=== PATIENT | male | born 1990 | race Caucasian/White ===

== ENCOUNTER 2023-01-02 12:59 | Emergency (ER) | payer SELFPAY ==
[2023-01-02 13:04] VITALS: BP 176/93; PULSE 70; RESP 18; TEMP 36.6; O2SAT 99; BMI 39.9
--- NOTE | 2023-01-02 13:41 | ED.GENADUL1 ---
HPI - General Adult General Chief complaint: Eye Problems Stated complaint: EYE PAIN Time Seen by Provider: 01/02/23 13:11 Source: patient Mode of arrival: walk-in Limitations: no limitations History of Present Illness HPI narrative: [age] male presents her chief complaint of right eye irritation. He will to bed last night with his contacts in. States he wear contacts daily without removing. states Been wearing contacts for last two or three days, woke up with irritation and burning sensation to the right eye. Denies any foreign body, known injury or trauma. he states he has had similar symptoms in the past. He did remove the contact before coming to the emergency room. Conjunctivae is red and injected. Patient rubbing his eye. Complains of photophobia as well. States last tetanus immunization was six months ago. Related Data Previous Rx's Medication Instructions Recorded ketorolac 0.5 % eye drops (Acular) 1 drp ophthalmic (eye) Q8H 4 days 01/02/23 #5 mL tobramycin 0.3 %-dexamethasone 0.1 1 drp ophthalmic (eye) Q6H 5 days 01/02/23 % eye drops,suspension (TobraDex) #5 mL Allergies Allergy/AdvReac Type Severity Reaction Status Date / Time sulfamethoxazole AdvReac Mild Hives Verified 01/02/23 13:04 [From Bactrim] trimethoprim [From Bactrim] AdvReac Mild Hives Verified 01/02/23 13:04 Review of Systems ROS Narrative All Systems are negative except as noted/marked.All systems reviewed and otherwise negative Exam Narrative Exam Narrative: Nurses's note reviewed and patient is not hypoxic. General: The patient appears well and in no apparent distress. Patient is resting comfortably on cart. Skin: Warm, dry, no pallor noted. Head: Normocephalic, atraumatic Neck: Supple, trachea mid-line, no tenderness, no lymphadenopathy Eye: Normal extraocular motion, pupils were equal round and reactive to light, the patient had no pain with extraocular motion. The patient had Tetracaine applied to the (right eye), fluorescein dye was instilled following. The patient had exam with slit lamp that did show evidence of uptake at the ___7'oclock _ cornea, iritis injected as well. The patient had no involvement over the pupil. There was evidence of conjunctival injection. The patient's eyelid was everted and swept with no evidence of foreign body. The patient had no swelling of the upper/lower eyelid. No evidence of hyphema, dendritic lesion or Narrow angle. No corneal ulcerations or hypopyn. No evidence of preseptal cellulitis or orbital cellulitis. Ears, Nose, Mouth, and Throat: oral mucosa is moist Respiratory: Patient is in no distress Neurological: A&O x4, normal speech Psychiatric: Cooperative Constitutional Vital Signs - 24 hr 01/02/23 13:04 Temperature 98 F Pulse Rate [Monitor] 70 Respiratory Rate 18 Blood Pressure [Right Arm] 176/93 H Pulse Oximetry 99 Oxygen Delivery Method Room Air Course Vital Signs Vital signs: Vital Signs Temperature 98 F 01/02/23 13:04 Pulse Rate 70 01/02/23 13:04 Respiratory Rate 18 01/02/23 13:04 Blood Pressure 176/93 H 01/02/23 13:04 Pulse Oximetry 99 01/02/23 13:04 Oxygen Delivery Method Room Air 01/02/23 13:04 Temperature 98 F 01/02/23 13:04 Pulse Rate 70 01/02/23 13:04 Respiratory Rate 18 01/02/23 13:04 Blood Pressure 176/93 H 01/02/23 13:04 Pulse Oximetry 99 01/02/23 13:04 Oxygen Delivery Method Room Air 01/02/23 13:04 Medical Decision Making MDM Narrative Medical decision making narrative: Normal extraocular motion, pupils were equal round and reactive to light, the patient had no pain with extraocular motion. The patient had Tetracaine applied to the (right eye), fluorescein dye was instilled following. The patient had exam with slit lamp that did show evidence of uptake at the ___7'oclock _ cornea, iritis injected as well. The patient had no involvement over the pupil. There was evidence of conjunctival injection. The patient's eyelid was everted and swept with no evidence of foreign body. The patient had no swelling of the upper/lower eyelid. No evidence of hyphema, dendritic lesion or Narrow angle. No corneal ulcerations or hypopyn. No evidence of preseptal cellulitis or orbital cellulitis. Patient's pain was relieved with tetracaine. Foreseen stain was placed in the 7:00 area of uptake noted consistent with corneal abrasion. No foreign body noted. He does have early onset of iritis as well. He'll be discharged home with TobraDex eyedrops and Acular. He is going to follow-up with his eye doctor on Thursday or Thursday at [facility]. Reasons return to emergency room or discussed. Patient agrees with plan of care. Medical Records Medical records reviewed: Yes I reviewed the patient's medical records Discharge Plan Discharge Chief Complaint: Eye Problems Clinical Impression: Acute iritis, Corneal abrasion Patient Disposition: Home, Self-Care Time of Disposition Decision: 13:37 Condition: Good Prescriptions / Home Meds: New ketorolac [Acular] 0.5 % drops 1 drp ophthalmic (eye) Q8H 4 Days Qty: 5 0RF Rx Instructions: begin 24 hours prior to surgery tobramycin-dexamethasone [TobraDex] 0.3-0.1 % drops,suspension 1 drp ophthalmic (eye) Q6H 5 Days Qty: 5 0RF Instructions: Iritis (ED), Corneal Abrasion (ED) Stand Alone Forms: Portal Instructions Referrals: NATHEN GARCIA [Primary Care Provider] - 1 week
[2023-01-02] MEDS: FLUORESCEIN SODIUM 1 MG STRIP OP (13:44)
== END 2023-01-02 13:47 | disposition home or self-care (01) ==
PROVIDERS: Emergency Provider Emergency Medicine; PCP Family Medicine
DX: H20.00 Unspecified acute and subacute iridocyclitis (principal); S05.01XA Injury of conjunctiva and corneal abrasion without foreign body, right eye, initial encounter; X58.XXXA Exposure to other specified factors, initial encounter
CPT/HCPCS: 99283

== ENCOUNTER 2024-02-24 16:18 | Emergency (ER) | payer OTHER, SELFPAY ==
[2024-02-24 16:24] VITALS: BP 175/98; PULSE 82; TEMP 36.9; O2SAT 95; BMI 44.3
--- NOTE | 2024-02-24 16:40 | ED_ITS ---
HPI HPI - General Adult General Chief complaint: Abdominal Pain Stated complaint: Lower Abdominal Pain Time Seen by Provider: 02/24/24 16:20 Source: patient Mode of arrival: walk-in History of Present Illness HPI narrative: Patient presents ED complaining of left lower quadrant pain and flank pain. Patient states it started pretty suddenly at work tonight about 4 hours ago. He thought maybe he just had to stand up and stretch but it was not getting any better and the pain was getting more severe and sharp. He said it was making him nauseated but no vomiting at this time. No history of kidney stones. No history of diverticulitis. He does report that the pain radiates towards the testicle but no acute testicular pain. No fevers. Related Data Home Medications ?Medication ?Instructions ?Recorded ?Confirmed dextroamphetamine-amphetamine 30 02/24/24 mg tablet Allergies Allergy/AdvReac Type Severity Reaction Status Date / Time sulfamethoxazole AdvReac Mild Hives Verified 01/02/23 13:04 [From Bactrim] trimethoprim [From Bactrim] AdvReac Mild Hives Verified 01/02/23 13:04 Opioid HPI Opioid Management Most Recent Opioid Data: Last AUG Pain Assessment 02/24/24 16:45 Review of Systems ROS Status of ROS 10 or more systems reviewed and unremark able except as noted in history and below Exam Narrative Exam Narrative: Time Seen: [] Vital Signs: [Per nurse's notes.] General: [Alert] Skin: [Warm, dry, no rash.] Head: [Normocephalic, atraumatic.] Neck: [Supple, trachea midline.] Eye: [Pupils are equal, round and reactive to light, extraocular movements are intact, normal conjunctiva.] Ears, nose, mouth and throat: oral mucosa moist. Cardiovascular: [Regular rate and rhythm, no murmur.] Respiratory: [Lungs are clear to auscultation, respirations are non-labored, breath sounds are equal.] Chest wall: [No tenderness, no deformity.] Gastrointestinal: [Soft, nontender, non distended, normal bowel sounds.]Patient reports the left lower quadrant pain and flank pain Is not really reproducible on exam but it feels more deeper in MSK: 5 out of 5 muscle strength x 4 extremities no calf pain or edema Lymphatics: [No lymphadenopathy.] Psychiatric: [Cooperative, appropriate mood & affect.] Neurological: [Alert and oriented to person, place, time, and situation, no focal neurological deficit observed.] Constitutional Vital Signs, click to edit/add: Last Vital Signs Temp 98.4 F 02/24/24 16:24 Pulse 82 02/24/24 16:24 Resp 16 02/24/24 16:24 BP 175/98 H 02/24/24 16:24 Pulse Ox 95 02/24/24 16:24 O2 Del Method Room Air 02/24/24 16:24 Course Vital Signs Vital signs: Vital Signs Temperature 98.4 F 02/24/24 16:24 Pulse Rate 82 02/24/24 16:24 Respiratory Rate 16 02/24/24 16:24 Blood Pressure 175/98 H 02/24/24 16:24 Pulse Oximetry 95 02/24/24 16:24 Oxygen Delivery Method Room Air 02/24/24 16:24 Temperature 98.4 F 02/24/24 16:24 Pulse Rate 82 02/24/24 16:24 Respiratory Rate 16 02/24/24 16:24 Blood Pressure 175/98 H 02/24/24 16:24 Pulse Oximetry 95 02/24/24 16:24 Oxygen Delivery Method Room Air 02/24/24 16:24 Medical Decision Making MDM Narrative Medical decision making narrative: Final clinical impression is kidney stone Differential Diagnosis Differential Diagnosis: Kidney stone diverticulitis Lab Data Labs: Lab Results 02/24/24 02/24/24 Range/Units 16:27 16:50 WBC 11.3 H (4.0-11.0) 10^3/uL RBC 5.58 (4.70-6.10) 10^6/uL Hgb 15.9 (14.0-18.0) g/dL Hct 47.8 (42.0-54.0) % MCV 85.7 (80.0-94.0) fL MCH 28.5 (25.9-34.0) pg MCHC 33.3 (29.9-35.2) g/dL RDW 13.9 (11.0-15.0) % Plt Count 334 (150-450) 10^3/uL MPV 9.1 L (9.5-13.5) fL Neut % (Auto) 56.1 (43.0-75.0) % Lymph % (Auto) 32.7 (20.5-60.0) % [place] % (Auto) 8.3 (1.7-12.0) % Eos % (Auto) 1.9 (0.9-7.0) % Baso % (Auto) 0.5 (0.2-2.0) % Neut # (Auto) 6.3 (1.4-6.5) 10^3/uL Lymph # (Auto) 3.7 (1.2-3.8) 10^3/uL [place] # (Auto) 0.9 H (0.3-0.8) 10^3/uL Eos # (Auto) 0.2 (0.0-0.7) 10^3/uL Baso # (Auto) 0.1 (0.0-0.1) 10^3/uL Abs Immat Gran (auto) 0.06 H (0.00-0.03) 10^3/uL Imm/Tot Granulo (auto) 0.5 (0.0-0.5) % Sodium 139 (136-145) mmol/L Potassium 5.1 (3.5-5.1) mmol/L Chloride 103 (98-107) mmol/L Carbon Dioxide 25.7 (21.0-32.0) mmol/L Anion Gap 15.4 BUN 15.0 (7.0-18.0) mg/dL Creatinine 1.07 (0.70-1.30) mg/dL Est GFR ( Amer) >60 (>=60) Est GFR (Non-Af Amer) >60 (>=60) BUN/Creatinine Ratio 14.0 Glucose 94 (74-106) mg/dL Calcium 9.1 (8.5-10.1) mg/dL Total Bilirubin 0.6 (0.2-1.0) mg/dL AST 38 H (15-37) U/L ALT 50 (16-63) U/L Alkaline Phosphatase 85 (46-116) U/L Total Protein 7.7 (6.4-8.2) g/dL Albumin 4.0 (3.4-5.0) g/dL Globulin 3.7 g/dL Albumin/Globulin Ratio 1.1 Urine Color Yellow (YELLOW) Urine Clarity Clear (CLEAR) Urine pH 5.5 (5.0-9.0) Ur Specific [place] >=1.030 A (1.005-1.025) Urine Protein Negative (NEG/TRACE) mg/dL Urine Glucose (UA) Negative (NEGATIVE) mg/dL Urine Ketones Negative (NEGATIVE) mg/dL Urine Occult Blood Large A (NEGATIVE) Urine Nitrite Negative (NEGATIVE) Urine Bilirubin Negative (NEGATIVE) Urine Urobilinogen 0.2 (0.2-1.0) EU/dL Ur Leukocyte Esterase Negative (NEGATIVE) Urine RBC 75-100 A (0-2) #/HPF Urine WBC None seen (NONE SEEN) #/HPF Ur Squamous Epith Cells Rare (NONE/RARE) #/LPF Urine Crystals None seen (None Seen) #/HPF Urine Bacteria Trace A (NONE SEEN) #/HPF Urine Casts None seen (NONE SEEN) #/LPF Urine Mucus None seen (NONE SEEN) Ur Culture Indicated? No Discharge Plan Discharge Stand Alone Forms: Work/School Release, Portal Instructions Chief Complaint: Abdominal Pain Clinical Impression: Kidney stone Patient Disposition: Home, Self-Care Time of Disposition Decision: 17:38 Condition: Good Mode of Transportation: Private Vehicle Prescriptions / Home Meds: No Action dextroamphetamine-amphetamine 30 mg tablet Print Language: Sami Instructions: Kidney Stones (ED), How to Strain Your Urine (ED) Referrals: Swati Steen MD [Physician] - 1 week NATHEN GARCIA [Primary Care Provider] - 1 week Discharge Date/Time: 02/24/24 17:58
[2024-02-24] MEDS: KETOROLAC TROMETHAMINE 30 MG/ML VIAL IVP (16:45)
[2024-02-24] MEDS: 0.9 % SODIUM CHLORIDE 1,000 ML 999 ML IV (16:46)
[2024-02-24] MEDS: ONDANSETRON PF 4 MG/2 ML VIAL IV (16:46)
[2024-02-24 16:55] LABS: Basophils Absolute Auto 0.1 10^3/uL (0.0-0.1); Basophils Percent Auto 0.5 % (0.2-2.0); Eosinophils Absolute Auto 0.2 10^3/uL (0.0-0.7); Eosinophils Percent Auto 1.9 % (0.9-7.0); Hematocrit 47.8 % (42.0-54.0); Hemoglobin 15.9 g/dL (14.0-18.0); Immature Granulocytes Abs Auto 0.06 10^3/uL (0.00-0.03); Immature Granulocytes Pct Auto 0.5 % (0.0-0.5); Lymphocytes Absolute Auto 3.7 10^3/uL (1.2-3.8); Lymphocytes Percent Auto 32.7 % (20.5-60.0); Mean Corpuscular HGB Conc 33.3 g/dL (29.9-35.2); Mean Corpuscular Hemoglobin 28.5 pg (25.9-34.0); Mean Corpuscular Volume 85.7 fL (80.0-94.0); Mean Platelet Volume 9.1 fL (9.5-13.5); Monocytes Absolute Auto 0.9 10^3/uL (0.3-0.8); Monocytes Percent Auto 8.3 % (1.7-12.0); Neutrophils Absolute Auto 6.3 10^3/uL (1.4-6.5); Neutrophils Percent Auto 56.1 % (43.0-75.0); Platelet Count 334 10^3/uL (150-450); Red Blood Count 5.58 10^6/uL (4.70-6.10); Red Cell Distribution Width 13.9 % (11.0-15.0); White Blood Count 11.3 10^3/uL (4.0-11.0)
[2024-02-24 16:56] LABS: Bilirubin Urine NEGATIVE (NEGATIVE); Blood Urine LARGE (NEGATIVE); Clarity Urine CLEAR (CLEAR); Color Urine YELLOW (YELLOW); Glucose Urine UA NEGATIVE (NEGATIVE); Ketones Urine NEGATIVE (NEGATIVE); Leukocyte Esterase Urine NEGATIVE (NEGATIVE); Nitrite Urine NEGATIVE (NEGATIVE); Protein Urine NEGATIVE (NEG/TRACE); Specific Gravity Urine >=1.030 (1.005-1.025); Urobilinogen Urine 0.2 EU/dL (0.2-1.0); pH Urine 5.5 (5.0-9.0)
[2024-02-24 17:01] LABS: Urine Microscopic Indicated YES
[2024-02-24 17:07] LABS: Bacteria Urine TRACE #/HPF (NONE SEEN); Cast Seen? NONE SEEN #/LPF (NONE SEEN); Crystals Seen? None Seen #/HPF (None Seen); Mucus Urine NONE SEEN (NONE SEEN); RBC Urine 75-100 #/HPF (0-2); Squamous Epithelial Cell Urine RARE #/LPF (NONE/RARE); WBC Urine NONE SEEN #/HPF (NONE SEEN)
[2024-02-24 17:08] LABS: Urine Culture Indicated NO
[2024-02-24 17:11] LABS: Alanine Aminotransferase 50 U/L (16-63); Albumin Globulin Ratio 1.1; Alkaline Phosphatase 85 U/L (46-116); Anion Gap 15.4; Aspartate Amino Transferase 38 U/L (15-37); Bilirubin Total 0.6 mg/dL (0.2-1.0); Calcium 9.1 mg/dL (8.5-10.1); Carbon Dioxide 25.7 mmol/L (21.0-32.0); Chloride 103 mmol/L (98-107); Estimated GFR (African America >60 (>=60); Estimated GFR (Non-African Ame >60 (>=60); Globulin 3.7 g/dL; Glucose 94 mg/dL (74-106); Potassium 5.1 mmol/L (3.5-5.1); Sodium 139 mmol/L (136-145); Total Protein 7.7 g/dL (6.4-8.2)
--- NOTE | 2024-02-24 17:12 | CT_ITS ---
[address] [address] Patient Name: CHASIDY ANTOINE MRN: [id number] date: 1990 Sex: M Assigned Patient Location: ER Current Patient Location: [facility] Accession/Order Number: [id number] Exam Date: 02/24/2024 17:10 Report Date: 02/24/2024 17:33 At the request of: WOLF MAIER Procedure: CT abdomen pelvis wo con EXAM: CT abdomen pelvis wo con HISTORY: L flank pain COMPARISON: None. TECHNIQUE: Axial CT imaging was performed through the abdomen and pelvis without intravenous contrast. Multiplanar reformats were performed. Dose reduction techniques were achieved by using automated exposure control and/or adjustment of mA and/or kV according to patient size and/or use of iterative reconstruction technique. FINDINGS: Lung bases: Lung bases are clear. No pleural effusion. GI upper: Small hiatal hernia. Liver: Hepatomegaly, measuring 19.4 cm with steatosis. Normal contour. Gallbladder: No significant abnormality. No cholelithiasis. Biliary system: No intra or extrahepatic biliary ductal dilatation. Spleen: Normal size. Pancreas: Unremarkable. Adrenal glands: Normal adrenal glands. Kidneys/ureters: Normal contours. Multiple bilateral renal stones measuring up to 0.3 cm. There is a 0.4 cm stone in the urinary bladder, at the left UV junction, resulting in minimal to mild left hydroureteronephrosis. Vessels: No aneurysm. Lymph Nodes: No lymphadenopathy. Small bowel: No wall thickening or dilatation. Colon: No wall thickening or dilatation. Colonic diverticulosis without evidence of acute diverticulitis. Appendix: Appendix is identified with normal appearance. Peritoneal cavity: No free fluid or pneumoperitoneum. Lower : Unremarkable. Bones: No acute bony abnormality. Soft tissues: No acute finding. Additional findings: None. CT/CT abdomen pelvis wo con IMPRESSION: Multiple bilateral renal stones measuring up to 0.3 cm. a 0.4 cm stone in the urinary bladder, at the left UV junction, resulting in minimal to mild left hydroureteronephrosis. Small hiatal hernia. Hepatic steatosis. Electronically authenticated by: TIM ALLEN Date: 02/24/2024 17:33
== END 2024-02-24 17:58 | disposition home or self-care (01) ==
PROVIDERS: Emergency Provider Emergency Medicine; PCP Family Medicine
DX: N20.0 Calculus of kidney (principal)
CPT/HCPCS: 36415; 74176; 80053; 81001; 85025; 96374; 96375; 99285; J1885; J2405

== ENCOUNTER 2024-04-01 09:44 | Observation (INO) | payer OTHER, SELFPAY ==
[2024-04-01] VITALS (27 sets, daily range): BP systolic 96–159; BP diastolic 67–102; PULSE 72–94; TEMP 36.2–37.2; O2SAT 90–97; BMI 47.0
--- NOTE | 2024-04-01 09:55 | ECG_ITS ---
[facility] Test Date: 2024-04-01 Pat Name: CHASIDY ANTOINE Department: Room: - Gender: Male [employer] Opener: : 1990 Requested By: NATHEN GARCIA Order Number: [id number] Reading MD: PHILIP GUTIERREZ Measurements Intervals [place] Rate: 96 P: 49 NM: 138 QRS: 84 QRSD: 96 T: 39 QT: 362 QTc: 415 Interpretive Statements 1100 Sinus rhythm 9110 normal ECG No previous ECG available for comparison Electronically Signed On 04-01-2024 18:06:55 EDT by PHILIP GUTIERREZ
--- NOTE | 2024-04-01 09:56 | ED.GENADUL1 ---
HPI HPI - General Adult General Chief complaint: Altered Mental Status Stated complaint: ALTERED MENTAL STATUS Time Seen by Provider: 04/01/24 09:53 History of Present Illness HPI narrative: 33-year-old male presents to the emergency department for altered mental status. He is brought in by his brother. The patient's girlfriend called the brother and told him that he the patient was acting strange. The brother suspects that he is abusing his Adderall. The patient is unable to provide any history. Related Data Home Medications ?Medication ?Instructions ?Recorded ?Confirmed dextroamphetamine-amphetamine 30 02/24/24 mg tablet Allergies Allergy/AdvReac Type Severity Reaction Status Date / Time sulfamethoxazole AdvReac Mild Hives Verified 01/02/23 13:04 [From Bactrim] trimethoprim [From Bactrim] AdvReac Mild Hives Verified 01/02/23 13:04 Opioid HPI Opioid Management Most Recent Opioid Data: Ur Phencyclidine Scrn Negative (NEGATIVE) 04/01/24 11:20 Review of Systems ROS Narrative Not obtainable, altered mental status Exam Narrative Exam Narrative: Nurses note and vital signs reviewed and patient is not hypoxic. General: The patient appears anxious and is in no respiratory distress Skin: Warm, dry, no pallor noted. There is no rash noted. Head: Normocephalic, atraumatic Eye: Normal conjunctiva, no drainage Ears, Nose, Mouth, and Throat: oral mucosa is moist. Nares patent. Cardiovascular: Regular Rate and Rhythm Respiratory: Patient is in no distress, no accessory muscle use GI: Obese and nontender Musculoskeletal: The patient has no evidence of calf tenderness, no pitting edema, symmetrical pulses noted bilaterally Neurological: He is awake and speaking. He does not answer any orientation questions. He is uncooperative Psychiatric: Uncooperative Constitutional Vital Signs, click to edit/add: Last Vital Signs Temp 98.9 F 04/01/24 09:47 Pulse 94 H 04/01/24 10:42 Resp 18 04/01/24 10:42 BP 96/74 04/01/24 10:48 Pulse Ox 95 04/01/24 10:50 O2 Del Method Room Air 04/01/24 09:47 Course Vital Signs Vital signs: Vital Signs Temperature 98.9 F 04/01/24 09:47 Pulse Rate 90 04/01/24 09:47 Respiratory Rate 18 04/01/24 09:47 Blood Pressure 159/102 H 04/01/24 09:47 Pulse Oximetry 96 04/01/24 09:47 Oxygen Delivery Method Room Air 04/01/24 09:47 Temperature 98.9 F 04/01/24 09:47 Pulse Rate 94 H 04/01/24 10:42 Respiratory Rate 18 04/01/24 10:42 Blood Pressure 96/74 04/01/24 10:48 Pulse Oximetry 95 04/01/24 10:50 Oxygen Delivery Method Room Air 04/01/24 09:47 Medical Decision Making MDM Narrative Medical decision making narrative: The patient presented with altered mental status. He was combative and uncooperative and pulled his IV out. He was given IM Geodon which worked well and he was also given IV Ativan. Workup shows drug screen positive for methamphetamine and amphetamine. The rest of his workup is essentially negative including the CAT scan of his head. He has been sleeping here and has been hemodynamically stable. He is being admitted for observation Differential Diagnosis Differential Diagnosis: Substance abuse, psychiatric disorder, intracranial hemorrhage Lab Data Lab results reviewed: Yes I reviewed the patient's lab results Labs: Lab Results 04/01/24 04/01/24 Range/Units 10:00 11:20 WBC 10.7 (4.0-11.0) 10^3/uL RBC 5.57 (4.70-6.10) 10^6/uL Hgb 15.8 (14.0-18.0) g/dL Hct 46.9 (42.0-54.0) % MCV 84.2 (80.0-94.0) fL MCH 28.4 (25.9-34.0) pg MCHC 33.7 (29.9-35.2) g/dL RDW 13.3 (11.0-15.0) % Plt Count 296 (150-450) 10^3/uL MPV 9.0 L (9.5-13.5) fL Neut % (Auto) 59.0 (43.0-75.0) % Lymph % (Auto) 30.8 (20.5-60.0) % [place] % (Auto) 8.2 (1.7-12.0) % Eos % (Auto) 1.3 (0.9-7.0) % Baso % (Auto) 0.4 (0.2-2.0) % Neut # (Auto) 6.3 (1.4-6.5) 10^3/uL Lymph # (Auto) 3.3 (1.2-3.8) 10^3/uL [place] # (Auto) 0.9 H (0.3-0.8) 10^3/uL Eos # (Auto) 0.1 (0.0-0.7) 10^3/uL Baso # (Auto) 0.0 (0.0-0.1) 10^3/uL Abs Immat Gran (auto) 0.03 (0.00-0.03) 10^3/uL Imm/Tot Granulo (auto) 0.3 (0.0-0.5) % Sodium 137 (136-145) mmol/L Potassium 3.3 L (3.5-5.1) mmol/L Chloride 103 (98-107) mmol/L Carbon Dioxide 22.5 (21.0-32.0) mmol/L Anion Gap 14.8 BUN 17.0 (7.0-18.0) mg/dL Creatinine 1.53 H (0.70-1.30) mg/dL Est GFR ( Amer) >60 (>=60 mL/min/1.73m^2) Est GFR (Non-Af Amer) 52 L (>=60 mL/min/1.73m^2) BUN/Creatinine Ratio 11.1 Glucose 116 H (74-106) mg/dL Calcium 9.2 (8.5-10.1) mg/dL Urine Color Yellow (YELLOW) Urine Clarity Clear (CLEAR) Urine pH 6.0 (5.0-9.0) Ur Specific [place] >=1.030 A (1.005-1.025) Urine Protein Negative (NEG/TRACE) mg/dL Urine Glucose (UA) Negative (NEGATIVE) mg/dL Urine Ketones 15 A (NEGATIVE) mg/dL Urine Occult Blood Trace-i (NEGATIVE) Urine Nitrite Negative (NEGATIVE) Urine Bilirubin Small A (NEGATIVE) Urine Urobilinogen 1.0 (0.2-1.0) EU/dL Ur Leukocyte Esterase Negative (NEGATIVE) Urine RBC 0-2 (0-2) #/HPF Urine WBC 0-2 A (NONE SEEN) #/HPF Ur Squamous Epith Cells Rare (NONE/RARE) #/LPF Urine Crystals None seen (None Seen) #/HPF Urine Bacteria None seen (NONE SEEN) #/HPF Urine Casts Seen A (NONE SEEN) #/LPF Hyaline Casts Moderate Urine Mucus Trace A (NONE SEEN) Salicylates <2.8 (<=19.9) mg/dL Urine Opiates Screen Negative (NEGATIVE) Ur Buprenorphine Scrn Negative (NEGATIVE) Ur Oxycodone Screen Negative (NEGATIVE) Urine Methadone Screen Negative (NEGATIVE) Acetaminophen <2.0 L (10.0-30.0) ug/mL Ur Barbiturates Screen Negative (NEGATIVE) U Tricyclic Antidepress Negative (NEGATIVE) Ur Phencyclidine Scrn Negative (NEGATIVE) Ur Amphetamines Screen Positive A (NEGATIVE) U Methamphetamines Scrn Positive A (NEGATIVE) U Benzodiazepines Scrn Negative (NEGATIVE) Urine Cocaine Screen Negative (NEGATIVE) U Cannabinoids Screen Negative (NEGATIVE) Ethanol Quant <3 mg/dL Imaging Data Chest x-ray: Radiologist's impression: ITS Impressions Chest X-Ray 04/01/24 11:05 IMPRESSION: 1. Low lung volume examination. 2. Trace amount of lingular atelectasis versus infiltrates. Electronically authenticated by: FERNANDO CARRERO Date: 04/01/2024 11:[address] 04/01/24 11:05 IMPRESSION: 1. No abnormal or suspicious findings to account for patient's symptoms. Electronically authenticated by: FERNANDO CARRERO Date: 04/01/2024 11:16 ECG Data Attestation: I personally reviewed and interpreted this ECG as follows: (EKG on my interpretation shows sinus rhythm with a rate of 96 and no acute change) Discharge Plan Discharge Chief Complaint: Altered Mental Status Clinical Impression: Altered mental status, Substance abuse Patient Disposition: Admitted as Observation Time of Disposition Decision: 11:55 Condition: Fair Prescriptions / Home Meds: No Action dextroamphetamine-amphetamine 30 mg tablet Print Language: Libyan Referrals: NATHEN GARCIA [Primary Care Provider] - 1 week
[2024-04-01 10:12] LABS: Basophils Percent Auto 0.4 % (0.2-2.0); Eosinophils Absolute Auto 0.1 10^3/uL (0.0-0.7); Eosinophils Percent Auto 1.3 % (0.9-7.0); Hematocrit 46.9 % (42.0-54.0); Hemoglobin 15.8 g/dL (14.0-18.0); Immature Granulocytes Abs Auto 0.03 10^3/uL (0.00-0.03); Immature Granulocytes Pct Auto 0.3 % (0.0-0.5); Lymphocytes Absolute Auto 3.3 10^3/uL (1.2-3.8); Lymphocytes Percent Auto 30.8 % (20.5-60.0); Mean Corpuscular HGB Conc 33.7 g/dL (29.9-35.2); Mean Corpuscular Hemoglobin 28.4 pg (25.9-34.0); Mean Corpuscular Volume 84.2 fL (80.0-94.0); Monocytes Absolute Auto 0.9 10^3/uL (0.3-0.8); Monocytes Percent Auto 8.2 % (1.7-12.0); Neutrophils Absolute Auto 6.3 10^3/uL (1.4-6.5); Platelet Count 296 10^3/uL (150-450); Red Blood Count 5.57 10^6/uL (4.70-6.10); Red Cell Distribution Width 13.3 % (11.0-15.0); White Blood Count 10.7 10^3/uL (4.0-11.0)
[2024-04-01] MEDS: ZIPRASIDONE MESYLATE 20 MG VIAL IM (10:17)
[2024-04-01] MEDS: WATER FOR INJECTION, STERILE 20 ML VIAL INJ (10:17)
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
--- NOTE | 2024-04-01 10:23 | PC.NURSE ---
1020 - pt ripped his IV out. Dressing placed on L hand. IM medication administered per dr rhina cardona
[2024-04-01 10:27] LABS: Anion Gap 14.8; BUN Creatinine Ratio 11.1; Calcium 9.2 mg/dL (8.5-10.1); Carbon Dioxide 22.5 mmol/L (21.0-32.0); Chloride 103 mmol/L (98-107); Estimated GFR (African America >60 (>=60 mL/min/1.73m^2); Estimated GFR (Non-African Ame 52 (>=60 mL/min/1.73m^2); Glucose 116 mg/dL (74-106); Potassium 3.3 mmol/L (3.5-5.1); Sodium 137 mmol/L (136-145)
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
[2024-04-01] MEDS: LORAZEPAM 2 MG/ML VIAL 1 MG IV (10:37)
[2024-04-01 10:45] LABS: Acetaminophen <2.0 ug/mL (10.0-30.0); Salicylate <2.8 mg/dL (<=19.9)
[2024-04-01 10:46] LABS: Ethanol <3 mg/dL
--- NOTE | 2024-04-01 10:58 | PC.NURSE ---
1052 - Pt asleep and resting at this time. taken to CT now
--- NOTE | 2024-04-01 11:05 | CT_ITS ---
The [address] [address] Patient Name: CHASIDY ANTOINE MRN: [id number] date: 1990 Sex: M Assigned Patient Location: ER Current Patient Location: ER Accession/Order Number: [id number] Exam Date: 04/01/2024 11:02 Report Date: 04/01/2024 11:16 At the request of: MINE RAMESH Procedure: CT head/brain wo con EXAMINATION: CT head/brain wo con HISTORY: Altered mental status COMPARISON: No relevant comparison available. TECHNIQUE: Axial CT images were obtained without IV contrast. Dose reduction techniques were achieved by using automated exposure control and/or adjustment of mA and/or kV according to patient size and/or use of iterative reconstruction technique. FINDINGS: BRAIN: No edema, hemorrhage, mass, acute infarction, or inappropriate atrophy. CSF SPACES: No hydrocephalus, subarachnoid hemorrhage, or mass. Appropriate for age. SKULL: No fracture, mass, or other significant visible lesion. SINUSES: No significant mucosal thickening or fluid on the limited views. ORBITS: No appreciable abnormality on the limited views. OTHER: Negative CT/CT head/brain wo con IMPRESSION: 1. No abnormal or suspicious findings to account for patient's symptoms. Electronically authenticated by: FERNANDO CARRERO Date: 04/01/2024 11:16
--- NOTE | 2024-04-01 11:05 | XR_ITS ---
The [address] [address] Patient Name: CHASIDY ANTOINE MRN: [id number] date: 1990 Sex: M Assigned Patient Location: ER Current Patient Location: ER Accession/Order Number: [id number] Exam Date: 04/01/2024 11:02 Report Date: 04/01/2024 11:17 At the request of: MNIE RAMESH Procedure: XR chest 1V EXAMINATION: XR chest 1V HISTORY: Altered mental status COMPARISON: No relevant comparison available. FINDINGS: LUNGS: Underexpanded lungs with mild haziness within lateral left lung base partially obscuring the diaphragm and costophrenic angle. VASCULATURE: No increased pulmonary vasculature. PLEURA: No pneumothorax, effusion, or pleural thickening. CARDIAC: No cardiomegaly or cardiac silhouette abnormality. MEDIASTINUM: No visible mass or adenopathy. BONES: No fracture or visible bone lesion. OTHER: Negative. XR/XR chest 1V IMPRESSION: 1. Low lung volume examination. 2. Trace amount of lingular atelectasis versus infiltrates. Electronically authenticated by: FERNANDO CARRERO Date: 04/01/2024 11:17
[2024-04-01 11:29] LABS: Bilirubin Urine SMALL (NEGATIVE); Blood Urine TRACE-I (NEGATIVE); Clarity Urine CLEAR (CLEAR); Color Urine YELLOW (YELLOW); Glucose Urine UA NEGATIVE (NEGATIVE); Ketones Urine 15 mg/dL (NEGATIVE); Leukocyte Esterase Urine NEGATIVE (NEGATIVE); Nitrite Urine NEGATIVE (NEGATIVE); Protein Urine NEGATIVE (NEG/TRACE); Specific Gravity Urine >=1.030 (1.005-1.025)
[2024-04-01 11:38] LABS: Amphetamine Screen Urine POSITIVE (NEGATIVE); Barbiturates Screen Urine NEGATIVE (NEGATIVE); Benzodiazepines Screen Urine NEGATIVE (NEGATIVE); Buprenorphine Screen Urine NEGATIVE (NEGATIVE); Cannabinoid Screen Urine NEGATIVE (NEGATIVE); Cocaine Screen Urine NEGATIVE (NEGATIVE); Methadone Screen Urine NEGATIVE (NEGATIVE); Methamphetamines Screen Urine POSITIVE (NEGATIVE); Opiate Screen Urine NEGATIVE (NEGATIVE); Oxycodone Screen Urine NEGATIVE (NEGATIVE); Phencyclidine Screen Urine NEGATIVE (NEGATIVE); Tricyclic Antidepressant Urine NEGATIVE (NEGATIVE)
[2024-04-01 11:40] LABS: Mucus Urine TRACE (NONE SEEN); RBC Urine 0-2 #/HPF (0-2); WBC Urine 0-2 #/HPF (NONE SEEN)
[2024-04-01 11:41] LABS: Bacteria Urine NONE SEEN #/HPF (NONE SEEN); Cast Seen? SEEN #/LPF (NONE SEEN); Crystals Seen? None Seen #/HPF (None Seen); Hyaline Casts Urine MODERATE; Squamous Epithelial Cell Urine RARE #/LPF (NONE/RARE)
[2024-04-01] MEDS: 0.9 % SODIUM CHLORIDE 1,000 ML 100 ML IV (12:05)
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
[2024-04-01] MEDS: ENOXAPARIN SODIUM 40 MG/0.4 ML SYRINGE SUBQ (14:22)
[2024-04-01] MEDS: LACTATED RINGER'S SOLUTION 1,000 ML 125 ML IV ×2 (14:22→21:51)
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
--- NOTE | 2024-04-01 15:30 | SWNOTE1 ---
At this time pt is not appropriate for assessment.
[2024-04-02 00:08] VITALS: PULSE 65
[2024-04-02 02:07] VITALS: PULSE 71
[2024-04-02 04:07] VITALS: PULSE 68
[2024-04-02 05:00] VITALS: BP 155/97; PULSE 70; TEMP 36.4; O2SAT 92
[2024-04-02 05:03] VITALS: O2SAT 95
[2024-04-02] MEDS: LACTATED RINGER'S SOLUTION 1,000 ML 125 ML IV (05:50)
[2024-04-02 06:05] VITALS: PULSE 71
--- NOTE | 2024-04-02 06:50 | PC.NURSE ---
pt woke up. RN assisted patient to bathroom and back to bed. Pt called girlfriend and then stated we needed to take his iv out because he is leaving. Pt is A&Ox4. Nursing stevedoring supervisor in room with RN and patient. Referral Agent explained the risks and complications that can occur if he leaves and pt voiced understanding. Pt dressed himself and walked off the unit at [id number]. hospitalist made aware.
[2024-04-02 07:03] LABS: Alanine Aminotransferase 40 U/L (16-63); Albumin Level 3.3 g/dL (3.4-5.0); Alkaline Phosphatase 83 U/L (46-116); Anion Gap 15.7; Aspartate Amino Transferase 30 U/L (15-37); BUN Creatinine Ratio 10.7; Bilirubin Total 1.4 mg/dL (0.2-1.0); Calcium 8.4 mg/dL (8.5-10.1); Chloride 103 mmol/L (98-107); Estimated GFR (African America >60 (>=60 mL/min/1.73m^2); Estimated GFR (Non-African Ame >60 (>=60 mL/min/1.73m^2); Globulin 3.2 g/dL; Glucose 79 mg/dL (74-106); Potassium 3.7 mmol/L (3.5-5.1); Sodium 139 mmol/L (136-145); Total Protein 6.5 g/dL (6.4-8.2)
--- NOTE | 2024-04-04 14:56 | CM.DCFOLLOWU ---
1st attempt 04/04/24, no answer
--- NOTE | 2024-04-05 14:17 | CM.DCFOLLOWU ---
2nd attempt 04/05/24, no answer
--- NOTE | 2024-04-06 10:53 | CM.DCFOLLOWU ---
3rd attempt 04/06/24, no answer
== END 2024-04-02 06:47 | disposition left against medical advice (07) ==
LOC: ER 12:20 → MS 13:16
PROVIDERS: Admitting Provider Internal Medicine; Emergency Provider Emergency Medicine; PCP Family Medicine; Visit Provider Internal Medicine
DX: F15.10 Other stimulant abuse, uncomplicated (principal); R41.0 Disorientation, unspecified; F90.9 Attention-deficit hyperactivity disorder, unspecified type; F17.200 Nicotine dependence, unspecified, uncomplicated; Z53.29 Procedure and treatment not carried out because of patient's decision for other reasons
CPT/HCPCS: 36415; 70450; 71045; 80048; 80053; 80179; 80307; 80320; 80329; 81001; 85025; 93005; 94761; 96361; 96372; 96374; 99285; G0378; J1650; J2060; J3486